=== PATIENT | male | born 1990 | race Caucasian/White ===

== ENCOUNTER 2018-02-11 03:58 | Emergency (ER) | payer OTHER ==
[~2018-02-11] VITALS: Ht 160 cm; Wt 131.5 kg
[2018-02-11] MEDS ORDERED: CLEOCIN HCL150 MG PO (04:16)
[2018-02-11] MEDS ORDERED: HYDROCODONE-AP1 EAC6 PO (04:16)
[2018-02-11 04:30] VITALS: BP 136/82
== END 2018-02-11 04:32 | disposition home or self-care (01) ==
LOC: M.ERS 03:58
DX: M27.3 Alveolitis of jaws (principal)